=== PATIENT | female | born 1970 | race Caucasian/White ===

== ENCOUNTER 2023-08-03 06:46 | Day surgery (SDC) | payer OTHER, MEDICAID, SELFPAY ==
[2023-07-22 08:19] VITALS: BMI 28.7
--- NOTE | 2023-08-03 | PATH_ITS ---
[facility] Accession Number: [id number] No. of containers..01 Tissue . 01 Material submitted: . hip - LEFT HIP LIPOMA . 01 Diagnosis: LEFT HIP, EXCISION: Mature adipose tissue, consistent with lipoma. MRV 08/06/2023 1218 Local . 01 Electronically signed: . Eran Marinelli MD, Dermatopathologist NPI- [id number] . 01 Gross description: . Received in formalin with two identifiers and left hip lipoma, is a yellow, lobulated, soft tissue fragment measuring 6.3 x 4.2 x 1.8 cm. The specimen is inked blue, and sectioning reveals a yellow, soft, unremarkable cut surface. Digital Media Intern sections are submitted in cassette A1. ([id number]) /MRV 08/05/2023 0951 Local . 01 Pathologist provided ICD-10: D17.9 . 01 CPT . 293006 Specimen Comment: A courtesy copy of this report has been sent to [facility] Performed at: 01 [facility] [address] [place] [address], [place], [place] [id number] MD Samson Woodward MD Phone: [phone]
[2023-08-03 07:16] VITALS: BP 133/76; PULSE 63; RESP 18; TEMP 36.7; O2SAT 99; BMI 28.7
[2023-08-03] MEDS: LACTATED RINGERS 1,000 ML 42 ML IV (07:26)
--- NOTE | 2023-08-03 07:40 | PM.HP.1 ---
History of Present Illness History of Present Illness Date Patient Seen: 08/03/23 Time Patient Seen: 07:40 Chief complaint: Excision Lesion/Mass Narrative: Cesilia is a 52 year old woman who has a trouble some lipoma for her left posterior hip. I saw her in March. See office note for details. [facility] Medical History (Updated 04/05/23 @ 20:56 by Marni Jolly) Family history of skin cancer Abnormal Pap smear of cervix HSV (herpes simplex virus) infection Surgical History (Updated 07/22/23 @ 08:21 by Abimbola Brush RN) Hx of abdominoplasty (2007) History of delivery Social History marital status: unmarried,living together details: soon to be in Apr number of children: 4 household members: spouse education level: college Previous occupational history: worked previously in education other: loves outdoor activity Smoking Status: Former smoker alcohol intake: never Meds Home Medications and Allergies Home Medications Medication Instructions Recorded Confirmed Type valacyclovir 1 gram tablet 1,000 mg PO DAILY 03/25/23 08/03/23 History valacyclovir 1 gram tablet 1,000 mg PO Q8H #21 tabs 03/25/23 08/03/23 Rx Allergies Allergy/AdvReac Type Severity Reaction Status Date / Time No Known Drug Allergies Allergy Verified 08/03/23 07:15 Exam Vital Signs (past 8 hours): - 08/03/23 07:16 Temperature 98.0 F Pulse Rate 63 Respiratory Rate 18 Blood Pressure 133/76 Pulse Oximetry 99 Oxygen Delivery Method Room Air Oxygen Delivery Method Room Air Const General: healthy appearing Resp Effort & Inspection: normal respiratory effort Assessment & Plan Assessment and plan (1) Lipoma: Qualifiers: Lipoma location: lower extremity Laterality: left Qualified Code(s): D17.24 - Benign lipomatous neoplasm of skin and subcutaneous tissue of left leg Status: Acute Plan Proceed with excisional biopsy of left hip lipoma in the OR
[2023-08-03] MEDS: ACETAMINOPHEN IV 1,000 MG/100 ML VIAL 400 MG IV (08:02)
--- NOTE | 2023-08-03 08:07 | SUR.OPER ---
Lateral on a eid bag, head on pillow, gel axillary roll in place, bottom leg bent with gel pad under knee to foot, upper leg straight and supported with pillows. Upper arm supported by pillows and secured over bottom arm to padded arm board. Safety belt at hip, tape over blanket lower legs.
[2023-08-03] MEDS: BUPIVACAINE 0.5% (PF) 30 ML, EPINEPHrine 0.15 MG INJ (08:17)
--- NOTE | 2023-08-03 08:20 | PM.OP.1 ---
Operative Date/Time/Diagnoses Date of procedure: 08/03/23 Time of procedure: 08:20 Pre-op diagnosis: Left hip lipoma Post-op diagnosis: same Procedure & Clinicians Procedure: Excisional biopsy of left hip lipoma Same procedure as scheduled: Yes Surgeon: Dannie Drummond Strike Plate Attacher: Ventura Snider Anesthesia Type: General Operative Notes Procedure in detail: The patient is a 52-year-old woman with a left hip lipoma. The lipoma was marked in the preoperative holding area and consent was obtained. The patient was brought to the operating room and general anesthesia was induced. The patient was positioned in the right lateral decubitus position with the left hip up. She was secured with a beanbag and pressure points were padded. The left hip was prepped and draped in the usual fashion and a time-out was performed. After injecting lidocaine into the skin and subcutaneous tissue a 7 cm transverse incision was created with a 10 blade scalpel. The lipoma was noted immediately deep to the dermis. It was easily from the surrounding tissue by blunt finger dissection. The lipoma was approximately 6 cm x 3 cm x 3 cm. A few bleeding points were cauterized. Additional local was injected into the deep tissue. The wound was then closed in layers using multiple interrupted 3-0 Vicryl dermal sutures and a running 4-0 Monocryl subcuticular stitch. Dressings were applied and the patient was awakened and brought to recovery room. Specimen: Left hip lipoma EBL: 5 mL Post-operative Condition: stable Disposition: PACU
[2023-08-03 08:29] VITALS: BP 111/73; PULSE 84; RESP 16; TEMP 36.2; O2SAT 98
[2023-08-03 08:33] VITALS: BP 108/72; PULSE 77; RESP 18; O2SAT 95
[2023-08-03 08:37] VITALS: BP 107/71; PULSE 74; RESP 15; O2SAT 96
[2023-08-03 08:42] VITALS: BP 102/71; PULSE 67; RESP 12; TEMP 36.1; O2SAT 100
[2023-08-03 08:44] VITALS: BP 108/67; PULSE 67; RESP 16; O2SAT 96
== END 2023-08-03 09:13 | disposition home or self-care (01) ==
PROVIDERS: PCP Family Medicine; Referring Provider Surgery; Visit Provider Surgery
PROC: (CPT 27043; principal; 2023-08-03 07:45)
DX: D17.1 Benign lipomatous neoplasm of skin and subcutaneous tissue of trunk (principal)
CPT/HCPCS: 27043; J0136; J0171; J1100; J2250; J2405; J2704; J3010

== ENCOUNTER → 2023-09-01 14:35 | Outpatient (CLI) | payer OTHER, MEDICAID, SELFPAY | PROVIDERS: PCP Family Medicine; Visit Provider Family Medicine | DX: N15.9 Renal tubulo-interstitial disease, unspecified (principal) | CPT/HCPCS: 87086 ==

== ENCOUNTER → 2024-01-10 10:19 | Outpatient (CLI) | payer OTHER, MEDICAID, SELFPAY ==
[2024-01-10 11:20] LABS: Add Manual Diff / Slide Review NO; Basophils Absolute Auto 0 /uL (0-100); Basophils Percent Auto 0.4 % (0-2); Eosinophils Absolute Auto 0 /uL (0-450); Eosinophils Percent Auto 0.7 % (2-4); Hematocrit 39.1 % (36-46); Hemoglobin 13.4 g/dL (12.0-16.0); Lymphocytes Absolute Auto 1700 /uL (1100-4500); Lymphocytes Percent Auto 26.7 % (25-40); Mean Corpuscular HGB Conc 34.3 % (30-36); Mean Corpuscular Hemoglobin 29.6 PG (26-34); Mean Corpuscular Volume 86.5 fL (80-100); Monocytes Absolute Auto 500 /uL (0-900); Neutrophils Absolute Auto 4200 /uL (1500-7000); Neutrophils Percent Auto 65.2 % (50-75); Platelet Count 268 X10^3/uL (150-400); Red Blood Cell Count 4.52 X10^6/uL (4.0-5.2); Red Cell Distribution Width 12.5 % (11.6-14.8); White Blood Cell Count 6.5 X10^3/uL (4.5-11.0)
[2024-01-10 11:51] LABS: Alanine Aminotransferase 17 IU/L (<35); Albumin 4.1 g/dL (3.5-5.0); Albumin Globulin Ratio 1.4 (1.0-2.8); Alkaline Phosphatase 65 U/L (38-126); Aspartate Aminotransferase 21 IU/L (14-36); BUN Creatinine Ratio 14.9 (6-22); Bilirubin Total 0.6 mg/dL (0.2-1.3); Blood Urea Nitrogen 11 mg/dL (7-17); Calcium 9.9 mg/dL (8.4-10.2); Carbon Dioxide 27 mmol/L (22-32); Chloride 104 mmol/L (98-107); Cholesterol 211 mg/dL (140-199); Estimated Glomerular Filt Rate > 60 mL/min (>60); Glucose 86 mg/dL (70-100); HDL Cholesterol 83 mg/dL (40-60); HEMOLYSIS < 15 (0-50); LDL Cholesterol Calculated 116 mg/dL (<100); Potassium 4.5 mmol/L (3.4-5.1); Sodium 138 mmol/L (137-145); Total Protein 7.1 g/dL (6.3-8.2); Triglycerides 62 mg/dL (35-150)
== END ==
PROVIDERS: PCP Family Medicine; Referring Provider Family Medicine; Visit Provider Family Medicine
DX: Z00.00 Encounter for general adult medical examination without abnormal findings (principal); Z68.31 Body mass index [BMI] 31.0-31.9, adult
CPT/HCPCS: 36415; 80053; 80061; 85025

== ENCOUNTER → 2025-01-05 09:18 | Outpatient (CLI) | payer OTHER, SELFPAY ==
[2025-01-05 09:59] LABS: Add Manual Diff / Slide Review NO; Hematocrit 38.4 % (36-46); Hemoglobin 13.3 g/dL (12.0-16.0); Lymphocytes Absolute Auto 1800 /uL (1100-4500); Mean Corpuscular HGB Conc 34.7 % (30-36); Mean Corpuscular Hemoglobin 29.9 PG (26-34); Mean Corpuscular Volume 86.2 fL (80-100); Platelet Count 233 X10^3/uL (150-400)
[2025-01-05 10:28] LABS: Alanine Aminotransferase 16 IU/L (<35); Albumin 4.3 g/dL (3.5-5.0); Albumin Globulin Ratio 1.6 (1.0-2.8); Alkaline Phosphatase 53 U/L (38-126); Blood Urea Nitrogen 19 mg/dL (7-17); Calcium 10.0 mg/dL (8.4-10.2); Carbon Dioxide 29 mmol/L (22-32); Chloride 103 mmol/L (98-107); Cholesterol 187 mg/dL (140-199); Estimated Glomerular Filt Rate > 60 mL/min (>60); Globulin 2.7 g/dL (1.7-4.1); Glucose 91 mg/dL (70-99); HDL Cholesterol 67 mg/dL (40-60); HEMOLYSIS < 15 (0-50); Potassium 4.6 mmol/L (3.4-5.1); Sodium 139 mmol/L (137-145); Total Protein 7.0 g/dL (6.3-8.2); Triglycerides 62 mg/dL (35-150)
[2025-01-05 10:57] LABS: TSH w/ Reflex to FT4 2.09 uIU/mL (0.47-4.68)
== END ==
PROVIDERS: PCP Family Medicine; Referring Provider Family Medicine; Visit Provider Family Medicine
DX: E78.5 Hyperlipidemia, unspecified (principal); Z13.6 Encounter for screening for cardiovascular disorders
CPT/HCPCS: 36415; 80053; 80061; 84443; 85025

== ENCOUNTER → 2025-01-09 12:42 | Outpatient (CLI) | payer OTHER, SELFPAY ==
--- NOTE | 2025-01-09 12:44 | DI.RAD.S_ITS ---
PROCEDURE: XR SHOULDER RT MIN 2V INDICATIONS: Right shoulder pain TECHNIQUE: Three views of the right shoulder were acquired. COMPARISON: None. FINDINGS: Bones: There are no osseous abnormalities. Acromioclavicular and glenohumeral joints: Moderate acromioclavicular and mild glenohumeral degeneration appreciated . Soft tissues: 1 cm fusiform calcification in expected location rotator cuff insertion is compatible with calcific tendinitis. IMPRESSION: Probable calcific tendinitis rotator cuff. Please correlate with pain with shoulder abduction. This can be treated nonsurgically with ultrasound-guided barbotage Dictated by: Joaquin Wilkins M.D. on 01/10/2025 at 12:59 Approved by: Joaquin Wilkins M.D. on 01/10/2025 at 13:01
== END ==
PROVIDERS: PCP Family Medicine; Referring Provider Family Medicine; Visit Provider Family Medicine
DX: M19.011 Primary osteoarthritis, right shoulder (principal); M25.611 Stiffness of right shoulder, not elsewhere classified; M25.511 Pain in right shoulder; R29.898 Other symptoms and signs involving the musculoskeletal system; G89.29 Other chronic pain
CPT/HCPCS: 73030

== ENCOUNTER → 2025-02-22 11:56 | Outpatient (CLI) | payer OTHER, SELFPAY ==
--- NOTE | 2025-02-22 11:57 | DI.MRI.S_ITS ---
PROCEDURE: MR SHOULDER RT WO CON INDICATIONS: r/o RTC tear TECHNIQUE: Noncontrast oblique coronal T2 fast spin echo with fat saturation, oblique sagittal T1 spin echo and T2 fast spin echo with fat saturation, axial T1 spin echo and T2 fast spin echo with fat saturation through the shoulder. COMPARISON: [facility], CR, XR SHOULDER RT 2+ VIEWS, 01/09/2025, 12:39. FINDINGS: Image quality: Diagnostic. Rotator cuff: Severe tendinosis of supraspinatus with a full-thickness, partial width, 13 mm tear of the posterior supraspinatus tendon at the humeral apex which results in partial delamination of the articular sided fibers which are retracted to the medial humeral apex. Moderate tendinosis of infraspinatus. Teres minor is intact. Severe tendinosis of subscapularis with low-grade superficial articular sided fraying and mild mucoid change within the superior to central tendon fibers (/14). Mild atrophy of supraspinatus without significant fatty infiltration. Mild atrophy of the superior subscapularis with minimal fatty infiltration, less than 25%. No atrophy or fatty infiltration of infraspinatus or teres minor. Biceps: Severe tendinosis of the intra-articular long head of biceps which is perched on the superior lesser tuberosity, concerning for at least partial tearing of the superior biceps dena. Osseous structures and articular cartilage: No fracture, or suspicious marrow replacing process, or contusion. Enthesopathic change in the greater tuberosity. Partial-thickness articular cartilage thinning, grade 2, of the superior humeral head. Supraspinatus outlet: Moderate osteoarthrosis of the acromioclavicular joint.. The acromion demonstrates conventional anatomy, without an os acromiale. Moderate volume fluid in the subacromial subdeltoid bursa communicates through the full- thickness tear. Intra-articular: Attenuation of the posterior superior labrum is concerning for degenerative type tearing. The capsule is unremarkable. No imaging findings of adhesive capsulitis. Extra-articular: Normal deltoid. No visualized axillary lymphadenopathy. The superficial soft tissues are unremarkable. IMPRESSION: 1. Supraspinatus severe tendinosis with full-thickness, partial width, 13 mm, tear of the posterior supraspinatus tendon at the humeral apex with partial delamination and retraction to the medial humeral apex. 2. Severe tendinosis of subscapularis. 3. Severe tendinosis of the intra-articular long head of the biceps which is medially subluxed and perched on the lesser tuberosity, concerning for partial tearing of the biceps dena. 4. Mild osteoarthrosis of the glenohumeral joint, greatest in the superior humeral head. 5. Attenuation of the posterior superior labrum, concerning for degeneration and degenerative type tear. Dictated by: Stephon Lopez M.D. on 02/22/2025 at 15:43 Approved by: Stephon Lopez M.D. on 02/22/2025 at 15:49
== END ==
LOC: MRI 11:57
PROVIDERS: Family Provider Family Medicine; PCP Family Medicine; Referring Provider Orthopaedic Surgery; Visit Provider Orthopaedic Surgery
DX: M75.121 Complete rotator cuff tear or rupture of right shoulder, not specified as traumatic (principal); M19.011 Primary osteoarthritis, right shoulder; M25.511 Pain in right shoulder; M25.611 Stiffness of right shoulder, not elsewhere classified; R29.898 Other symptoms and signs involving the musculoskeletal system; G89.29 Other chronic pain
CPT/HCPCS: 73221

== ENCOUNTER → 2025-03-08 12:29 | Outpatient (CLI) | payer OTHER, SELFPAY ==
[2025-03-08 12:46] LABS: Add Manual Diff / Slide Review NO; Hematocrit 38.2 % (36-46); Hemoglobin 13.0 g/dL (12.0-16.0); Lymphocytes Absolute Auto 2700 /uL (1100-4500); Mean Corpuscular HGB Conc 34.1 % (30-36); Mean Corpuscular Hemoglobin 29.1 PG (26-34); Mean Corpuscular Volume 85.5 fL (80-100); Platelet Count 248 X10^3/uL (150-400)
== END ==
PROVIDERS: Family Provider Family Medicine; PCP Family Medicine; Referring Provider Family Medicine; Visit Provider Family Medicine
DX: E78.5 Hyperlipidemia, unspecified (principal)
CPT/HCPCS: 36415; 85025

== ENCOUNTER 2025-03-15 10:23 | Day surgery (SDC) | payer OTHER, SELFPAY ==
[2025-03-09 13:07] VITALS: BMI 29.2
[2025-03-15 11:10] VITALS: BP 135/87; PULSE 78; RESP 16; TEMP 36.4; O2SAT 96
[2025-03-15] MEDS: ACETAMINOPHEN 325 MG TABLET 975 MG PO (11:22)
[2025-03-15] MEDS: LACTATED RINGERS 1,000 ML 42 ML IV (11:22)
--- NOTE | 2025-03-15 12:51 | SUR.PREOP ---
Block start time 1236, with a time out at 1233 . Monitoring initiated and maintained throughout procedure. Oxygen and medications given per anesthesiologist instructions. Patient remained stable throughout procedure, no adverse reactions noted. Block end time 1245.
--- NOTE | 2025-03-15 12:52 | PM.PREOP ---
Pre-operative Note COVID-19 COVID-19 status: Not tested Interval Note History & Physical reviewed/Exam performed by Physician: Yes Changes to H&P: No
--- NOTE | 2025-03-15 13:44 | SUR.OPER ---
Beach chair with Trogamalo shoulder positioner. Lower body on padded OR bed. Head in foam padded head cradle, secured with straps. Non-operative arm secured <90 degrees abduction. Pillow under knees. Safety belt at thigh. Cloth tape over blanket over lower legs. Padded Lateral positioner post in place. Surgeon in room to assist with positioning, all pressure points padded and protected.
[2025-03-15] MEDS: SODIUM CHLORIDE IRRIG SOLUTION 3,000 ML, EPINEPHrine 3 MG IRR ×3 (13:58→14:31)
[2025-03-15 15:00] VITALS: BP 125/71; PULSE 64; RESP 16; TEMP 36.1; O2SAT 97
--- NOTE | 2025-03-15 15:03 | PM.OP.1 ---
Operative Date/Time/Diagnoses Date of procedure: 03/15/25 Time of procedure: 01:48 Pre-op diagnosis: 1. R shoulder rotator cuff tear 2. Biceps tendonitis Post-op diagnosis: same Procedure & Clinicians Procedure: 1. R shoulder arthroscopy with Rotator cuff repair 2. Open subpectoral biceps tenodesis Same procedure(s) as scheduled: Yes Surgeon: Beverly Keene Assisted?: Yes Business Development Intern: Abby Diaz Anesthesia Type: General Operative Notes Findings: see below Closure Type: primary Specimen(s): none sent Applied: none Estimated Blood Loss (mL): 30 Procedure in detail: Preoperative diagnosis: 1. R shoulder rotator cuff tear 2. Biceps tendonitis Postoperative diagnosis: 1. Full thickness supraspinatus tendon tear 2.? Biceps tendinitis Procedure performed: 1. R shoulder arthroscopy with Rotator cuff repair 2. Open subpectoral biceps tenodesis Implants: 1. Arthrex knotless tension tight button implant system 2.)? Arthrex fibertape and 4.75 Swivelock The patient was met in the preoperative hold area the right upper extremity was signed as the correct extremity. The patient was taken back to the operating room after an interscalene block was performed by anesthesia. The patient was placed in the beach chair position. All bony prominences were padded. The patient was positioned in the beach chair ensuring his neck was in neutral alignment. The patient was prepped and draped in the standard sterile fashion. A time-out was performed confirming the correct patient, correct procedure, correct extremity, initials on the operative site and administration of IV antibiotics A standard posterolateral viewing portal was utilized. A diagnostic arthroscopy was performed. The patient had an inflamed biceps tendon. A Full thickness supraspinatus tear was identified and debrided.? It was also marked with a spinal needle to view from the subacromial space. The biceps tendon was cut and the stump was debrided. After finishing the diagnostic arthroscopy I then performed the open subpectoral biceps tenodesis. A 3 cm incision was made just inferior to the Pec major in the axillary fold. Dissection was taken down through the subcutaneous tissues. The biceps tendon was identified and retrieved from the wound. An Arthrex cortical button was utilized fix the biceps tendon in place.? As I was tightening the biceps down and reinforced knots were placed.? This maintained an excellent onlay technique. I then placed the arthroscopic instruments in the subacromial space and the subacromial space was debrided. There was bursitis that was debrided. I identified the spinal needle and examined the rotator cuff.? There was a full thickness rotator cuff tear.? The footprint was debrided and the supraspinatus was repaired using a speed fix technique.? This was a tension free repair down to the footprint.? The rotator cuff moved in continuity. ? The wounds were copiously irrigated and the arthroscopy portals were closed with 3-0 nylon. The biceps tenodesis incision was closed with 2-0 Vicryl 3-0 Monocryl Steri-Strips. A sterile dressing was applied of Xeroform, plain gauze, Medipore tape. At the end of the surgery a total of 20 cc of 0.5% Marcaine was placed into the incision sites. Patient was awoken and taken to the PACU in stable condition. Complications: none Post-operative Condition: stable Disposition: PACU
[2025-03-15 15:06] VITALS: BP 111/65; PULSE 72; RESP 18; TEMP 36.2; O2SAT 95
[2025-03-15 15:11] VITALS: BP 126/74; PULSE 72; RESP 12; TEMP 36.1; O2SAT 95
[2025-03-15 15:30] VITALS: BP 126/74; PULSE 71; RESP 16; TEMP 36.1; O2SAT 98
== END 2025-03-15 16:00 | disposition home or self-care (01) ==
PROVIDERS: Family Provider Family Medicine; PCP Family Medicine; Referring Provider Family Medicine; Visit Provider Orthopaedic Surgery
PROC: (CPT 29827; principal; 2025-03-15 12:00)
DX: S46.011A Strain of muscle(s) and tendon(s) of the rotator cuff of right shoulder, initial encounter (principal); M75.21 Bicipital tendinitis, right shoulder; M19.011 Primary osteoarthritis, right shoulder; G89.18 Other acute postprocedural pain; V86.99XA Unspecified occupant of other special all-terrain or other off-road motor vehicle injured in nontraffic accident, initial encounter; Z87.891 Personal history of nicotine dependence
CPT/HCPCS: 29827; 23430; 64450; C1713; J0165; J0689; J1100; J1885; J2250; J2405; J2704; J3010; J7120